=== PATIENT | female | born 1945 | race Caucasian/White ===

== ENCOUNTER 2016-11-29 13:25 | Emergency (ER) | payer MEDICARE, MEDICAID ==
[~2016-11-29] VITALS: Wt 63.0 kg
[~2016-11-29 13:25] MED LIST: CALC-67 PO; CELE200C PO; LEVEM SC; LIRA0.6P2 SQ; METF1000 PO; OMEP20CA16 PO
[2016-11-29] MEDS ORDERED: [UNRECOGNIZED DRUG - OTHER] PO (17:30)
[2016-11-29] MEDS ORDERED: CEPH500C PO (17:34)
--- NOTE | 2016-11-29 18:55 | ERD ---
ER Documentation Chief Complaint Date/Time DATE: 11/29/16 TIME: 18:48 Chief Complaint RIGHT WOUND HERE FOR RECHECK ON WOUND AND SUTURES HPI 71-year-old woman here for wound check and suture removal after sustaining an open bimalleolar right ankle fracture over a month ago while visiting [place]. She underwent ORIF on November 12, 2016 and is here for follow-up and evaluation. She has been using antibiotics as prescribed and denies any redness or bleeding from the surgical site, no purulent discharge, no fevers or chills, no complaints of chest pain or shortness of breath. ROS All systems reviewed and are negative except as per history of present illness. Medications Home Meds Reported Medications Cephalexin* (Cephalexin*) 500 Mg Capsule, 500 MG PO Q8, #21 CAP 11/29/16 [Arcoxia ] No Conflict Check, 90 MG PO Q24H 11/29/16 Liraglutide (Victoza 3-Bro) 0.6 Mg/0.1 Ml Pen.injctr, 8 MG SQ AM, SYR 09/02/15 Insulin Detemir* (Levemir*) 100 U/Ml Vial, 6 UNIT SC QHS, VIAL 12/26/14 Omeprazole* (Omeprazole*) 20 Mg Capsule.dr, 20 MG PO DAILY, CAP 12/26/14 Metformin Hcl* (Metformin Hcl*) 1,000 Mg Tablet, 1000 MG PO BID, TAB 12/26/14 Discontinued Reported Medications Calcium Carbonate/Vitamin D3* (Os-Gilmar 500+D*) 1 Tab Tablet, 1 TAB PO TID, TAB 12/26/14 Celecoxib* (Celebrex*) 200 Mg Capsule, 200 MG PO DAILY, CAP 12/26/14 Allergies Allergies: Coded Allergies: No Known Allergy (Unverified , 11/29/16) PMhx/Soc Gastritis, hypertension, diabetes mellitus, recent bimalleolar right ankle fracture post ORIF History of Surgery: Yes (c/section x3, bilateral cataract) Anesthesia Reaction: No Hx Neurological Disorder: No Hx Respiratory Disorders: No Hx Cardiac Disorders: Yes (htn, iddm) Hx Psychiatric Problems: No Hx Miscellaneous Medical Probl: No Hx Alcohol Use: No Hx Substance Use: No Hx Tobacco Use: No FmHx Family History: diabetes Physical Exam Vitals Vital Signs Date Time Temp Pulse Resp B/P Pulse Ox O2 Delivery O2 Flow Rate FiO2 11/29/16 13:43 97.6 69 20 209/84 98 Physical Exam GENERAL: Well-developed, well-nourished, well-hydrated, in no apparent distress , looks nontoxic in appearance HEENT: Moist mucous membranes, pink conjunctiva, no cervical spine tenderness or step-off deformities, no goiter, no jaundice or icterus, extraocular movements intact without pain. No submandibular induration, and no pharyngeal erythema NEURO: Alert and oriented 3, cranial nerves II through XII intact bilaterally, pupils equal round reactive to light, no focal deficits or facial asymmetry, sensation intact distally Strength 5/5 in upper and lower extremities bilaterally CARDIAC: Regular rate and rhythm, no murmurs rubs or gallops LUNGS: Clear bilaterally no wheezing crackles or stridor ABDOMEN: Soft nontender, no guarding, no rigidity, no rebound, no psoas sign no obturator sign. Normoactive bowel sounds SKIN: Large surgical incisions running along the right lateral and medial malleolus. Multiple vertical mattress sutures are in place along the medial malleolus incision running for about 20 cm, and simple interrupted sutures along the right lateral malleolus incision measuring about 20 cm as well. There mild serosanguineous discharge along the medial incision otherwise wound looks clean and dry, there is no surrounding skin induration or erythema, no purulent discharge, and no abnormal wound dehiscence. EXTREMITIES: No clubbing cyanosis or edema, calves are bilaterally symmetrical, no Homans sign, no popliteal cord sign. Distal pulses equal and bilateral PSYCH: Normal affect without agitation or irritability Procedures/MDM Patient's gauze dressing and stockinette was removed, surgical incision sites were visualized and inspected by me. Each and every single suture along the medial and lateral malleolus incisions were removed by me, as the sutures were in place for about 3 weeks at this point. Patient could not get to her scheduled follow-up appointment while in [place] a week ago and so suture removal was delayed by 1 week. The skin appears well approximated after sutures were all removed, Betadine Xeroform dressing was applied in 1 layer to the incision and then wrapped with nonadherent gauze dressing followed by Malachi elastic bandage for comfort and supportive measures. Daily wound cleansing instructions were provided to the patient and her family members who were all at the bedside. They will follow-up at wound care clinic on the fourth floor and with the patient's PMD sometime later this week for continued outpatient management. Patient is to continue her antibiotics as prescribed and analgesics as needed. Patient feels much better at this time, and vital signs are normal, symptoms have improved. I did give strict instructions to return to the ED if symptoms continue or worsen, patient will otherwise follow-up with primary care physician. Patient understood instructions and agreed to plan. Departure Diagnosis: Primary Impression: Visit for suture removal Additional Impressions: Encounter for wound care Hypertension Hypertension type: essential hypertension Qualified Code: I10 - Essential hypertension Condition: Good Patient Instructions: Staple Removal, No Complication ALMA ROSA HERMAN MD Nov 29, 2016 18:55
== END 2016-11-29 17:48 | disposition home or self-care (01) ==
LOC: E/R 13:25
DX: Z48.01 Encounter for change or removal of surgical wound dressing (principal); I10 Essential (primary) hypertension; E11.9 Type 2 diabetes mellitus without complications; Z79.4 Long term (current) use of insulin; Z79.84 Long term (current) use of oral hypoglycemic drugs
CPT/HCPCS: 99282

== ENCOUNTER 2016-12-24 12:03 | Emergency (ER) | payer MEDICARE, OTHER ==
[~2016-12-24] VITALS: Wt 64.0 kg
[~2016-12-24 12:03] MED LIST changes: -CALC-67 PO; -CELE200C PO; +CEPH500C PO; +[UNRECOGNIZED DRUG - OTHER] PO
[2016-12-24] MEDS ORDERED: CEFAZOLIN 1 GM/50 ML (PMX) 50 ML IVPB SCH (12:30)
[2016-12-24 12:55] LABS: BASOPHILS % 0.4 % (0.0-2.0); EOSINOPHILS # 0.1 10^3/ul (0.0-0.5); EOSINOPHILS % 1.3 % (0.0-7.0); HEMATOCRIT 44.2 % (37.0-47.0); LYMPHOCYTES # 1.5 10^3/ul (0.8-2.9); LYMPHOCYTES % 17.3 % (15.0-51.0); MEAN CORPUSCULAR HEMOGLOBIN 31.7 pg (29.0-33.0); MEAN CORPUSCULAR HGB CONC 33.9 g/dl (32.0-37.0); MEAN CORPUSCULAR VOLUME 93.3 fl (82.0-101.0); MEAN PLATELET VOLUME 8.1 fl (7.4-10.4); MONOCYTE # 0.5 10^3/ul (0.3-0.9); MONOCYTES % 5.8 % (0.0-11.0); NEUTROPHIL # 6.6 10^3/ul (1.6-7.5); NEUTROPHILS % 75.2 % (39.0-77.0); PLATELET COUNT 197 10^3/UL (140-440); RED BLOOD COUNT 4.74 10^6/ul (4.20-5.40); RED CELL DISTRIBUTION WIDTH 12.7 % (11.5-14.5); UNCORRECTED WBC 8.8 10^3/ul (4.8-10.8); WHITE BLOOD COUNT 8.8 10^3/ul (4.8-10.8)
[2016-12-24 12:58] LABS: CONDITION 1
[2016-12-24 13:00] LABS: CREATININE 0.74 mg/dl (0.44-1.00)
[2016-12-24 13:01] LABS: CALCIUM 9.7 mg/dl (8.4-10.2)
--- NOTE | 2016-12-24 14:40 | ERD ---
ER Documentation Chief Complaint Date/Time DATE: 12/24/16 TIME: 14:37 Chief Complaint RIGHT LOWER LEG WOUND DEHISCIENCE AFTER REMOVING MACK WKS AGO HPI This is a 71-year-old female who presents to the emergency room for evaluation of right lower leg wound dehiscence. This patient does state that she had surgery on her right lower extremity in [place] in October. She was seen in the emergency room approximately 2 weeks ago where she had removal of her sutures which had been in place for approximately 3 weeks. As of 7 days ago her wound started to open up. She was referred to an orthopedic surgeon who refer this patient to the emergency room for further evaluation. The patient denies any fevers, denies any new trauma to the area. She was on an unknown antibiotic previously and came to the ER today with her son for evaluation ROS All systems reviewed and are negative except as per history of present illness. Medications Home Meds Reported Medications Cephalexin* (Cephalexin*) 500 Mg Capsule, 500 MG PO Q8, #21 CAP 11/29/16 [Arcoxia ] No Conflict Check, 90 MG PO Q24H 11/29/16 Liraglutide (Victoza 3-Bro) 0.6 Mg/0.1 Ml Pen.injctr, 8 MG SQ AM, SYR 09/02/15 Insulin Detemir* (Levemir*) 100 U/Ml Vial, 6 UNIT SC QHS, VIAL 12/26/14 Omeprazole* (Omeprazole*) 20 Mg Capsule.dr, 20 MG PO DAILY, CAP 12/26/14 Metformin Hcl* (Metformin Hcl*) 1,000 Mg Tablet, 1000 MG PO BID, TAB 12/26/14 Allergies Allergies: Coded Allergies: No Known Allergy (Unverified , 11/29/16) PMhx/Soc History of Surgery: Yes (c/section x3, bilateral cataract) Anesthesia Reaction: No Hx Neurological Disorder: No Hx Respiratory Disorders: No Hx Cardiac Disorders: Yes (htn, iddm) Hx Psychiatric Problems: No Hx Miscellaneous Medical Probl: No Hx Alcohol Use: No Hx Substance Use: No Hx Tobacco Use: No Smoking Status: Never smoker Physical Exam Vitals Vital Signs Date Time Temp Pulse Resp B/P Pulse Ox O2 Delivery O2 Flow Rate FiO2 12/24/16 12:09 97.9 79 20 202/79 98 Physical Exam INITIAL VITAL SIGNS: Reviewed by me GENERAL: The patient is well developed and appropriate for usual state of health in no apparent distress HEENT: Pupils equal, round, and reactive to light. EOMI. There is no scleral icterus. NECK: C-spine is soft and supple, there is no meningismus. There is no cervical lymphadenopathy. LUNGS: Clear to auscultation bilaterally. There are no rales, wheezes or rhonchi. HEART: Regular rate and rhythm, no murmurs, clicks, rubs or gallops. ABDOMEN: Soft, non-tender, non-distended. There are bowel sounds in all four quadrants. No rebound or guarding. EXTREMITIES: Right lower extremity dehiscence approximately 4 cm in length over the anterior tibia with visible metallic hardware, slight skin cellulitis surrounding the wound, no purulent discharge. There is no peripheral cyanosis or edema. No focal swelling or erythema. NEUROLOGICAL: The patient moves all four extremities with 5/5 strength. Cranial nerves II - XII are intact. Normal gait. Alert and oriented SKIN: There is no apparent rash or petechiae. HEME/LYMPHATIC: There is no evidence of excessive bruising or lymphedema. PSYCHIATRIC: The patient does not appear anxious or depressed. Result Diagram: 12/24/16 1225 12/24/16 1225 Results 24 hrs Laboratory Tests Test 12/24/16 12:25 Anion Gap 18 Basophils # 0.010^3/ul Basophils % 0.4% Blood Urea Nitrogen 13mg/dl Calcium Level 9.7mg/dl Carbon Dioxide Level 30mmol/L Chloride Level 100mmol/L Creatinine 0.74mg/dl Eosinophils # 0.110^3/ul Eosinophils % 1.3% Glucose Level 151mg/dl Hematocrit 44.2% Hemoglobin 15.0g/dl Lymphocytes # 1.510^3/ul Lymphocytes % 17.3% Mean Corpuscular Hemoglobin 31.7pg Mean Corpuscular Hemoglobin Concent 33.9g/dl Mean Corpuscular Volume 93.3fl Mean Platelet Volume 8.1fl Monocytes # 0.510^3/ul Monocytes % 5.8% Neutrophils # 6.610^3/ul Neutrophils % 75.2% Nucleated Red Blood Cells # 0.010^3/ul Nucleated Red Blood Cells % 0.0/100WBC Platelet Count 31642^3/UL Potassium Level 4.0mmol/L Red Blood Count 4.7410^6/ul Red Cell Distribution Width 12.7% Sodium Level 144mmol/L White Blood Count 8.810^3/ul Current Medications Medications (Trade) Dose Ordered Sig/Nanci Route PRN Reason Start Time Stop Time Status Last Admin Dose Admin Cefazolin Sodium (Ancef 1 Gm/50 ml (Pmx)) 50 ml @ 100 mls/hr ONCE IVPB 12/24/16 12:30 12/24/16 12:59 DC 12/24/16 12:35 Procedures/MDM X-ray Tib/Fib 2V Interpreted by me: Bones: No fracture Joints: No dislocation Foreign body: ORIF This 71-year-old female presents to the ER for evaluation of wound dehiscence in the right lower extremity after an open reduction internal fixation. She was sent in by an orthopedic surgeon, Dr. norman for evaluation. I did not see any purulent drainage from the wound. There was visible hardware underneath the dehiscence. I did call Dr. Norman and he states that this is not his patient, and he has only seen the patient once. Lab work was obtained on this patient which does not show any leukocytosis. This patient is afebrile. X-ray does not reveal any bone involvement of any infection or osteomyelitis. This patient was given 1 g of Ancef in the emergency room. She will be placed in a wet to dry dressing. And discharged home with a prescription for Bactrim, Keflex, and referral for orthopedic surgery with our on-call physician Dr. Rita Valenzuela Diagnosis: Primary Impression: Wound dehiscence Additional Impression: Cellulitis of skin Condition: Stable AMADEO VANEGAS DO Dec 24, 2016 14:40
[2016-12-24] MEDS ORDERED: CEPH-443 PO (14:41)
[2016-12-24] MEDS ORDERED: BACTDS PO (14:41)
--- NOTE | 2016-12-24 14:50 | RADRPT ---
PROCEDURE: XR Right Tibia and Fibula. CLINICAL INDICATION: Right lower leg pain. Wound infection. TECHNIQUE: Two views. Frontal and lateral. COMPARISON: No prior studies are available for comparison. FINDINGS: There has been open reduction and internal fixation with a medial plate and multiple screws transfix ing the fracture of the distal shaft of the tibia, and a lateral plate and multiple screws transfixi ng the distal shaft of the fibula. Alignment is satisfactory. There are is a recent nondisplaced f racture of the proximal shaft of the fibula. The soft tissues are normal. Articular surfaces are intact. There is no lytic or blastic lesion. There are calcaneal spurs. IMPRESSION: 1. Satisfactory postoperative appearance of the right tibia and fibula. 2. Calcaneal spurs. RPTAT: QQ .Shadi Amado MD, Date Time Electronically viewed and signed by .Shadi Amado MD, on 12/24/2016 14:50 .R/
[2016-12-24 15:11] VITALS: BP 152/67; PULSE 75; RESP 20; TEMP 97.9
[2016-12-24] MEDS ORDERED: IBUP800T25 PO (15:11)
== END 2016-12-24 15:13 | disposition home or self-care (01) ==
LOC: E/R 12:03
DX: T81.32XA Disruption of internal operation (surgical) wound, not elsewhere classified, initial encounter (principal); L03.115 Cellulitis of right lower limb; I10 Essential (primary) hypertension; E11.9 Type 2 diabetes mellitus without complications; Y82.8 Other medical devices associated with adverse incidents; Z79.4 Long term (current) use of insulin; Z79.84 Long term (current) use of oral hypoglycemic drugs
CPT/HCPCS: 73590; 80048; 85025; 96374; 99284; J0690